=== PATIENT | female | born 1980 | race Caucasian/White ===

== ENCOUNTER 2016-08-30 01:16 | Emergency (ER) | payer OTHER ==
[~2016-08-30] VITALS: Ht 172.7 cm; Wt 90.7 kg
[~2016-08-30 01:16] MED LIST: AZO URINARY P97.5 MG PO; BACTRIM DS TAB1 EACH PO; FLOMAX0.4 MG PO; HYDROCODON-ACE1 EAC7 PO; OXYCODONE HCL 55 MG PO; PROBIOTIC1 EAC1 PO
[2016-08-30] MEDS ORDERED: IBUPROFEN 600600 M1 PO (03:07)
[2016-08-30] MEDS ORDERED: FLEXERIL PO (03:07)
[2016-08-30] MEDS ORDERED: NORCO 5-325 TA1 EACH PO (03:07)
== END 2016-08-30 03:47 | disposition home or self-care (01) ==
LOC: ER 01:16
DX: S13.4XXA Sprain of ligaments of cervical spine, initial encounter (principal); S29.012A Strain of muscle and tendon of back wall of thorax, initial encounter; F31.9 Bipolar disorder, unspecified; Z87.442 Personal history of urinary calculi; F43.10 Post-traumatic stress disorder, unspecified; V89.0XXA Person injured in unspecified motor-vehicle accident, nontraffic, initial encounter; Y93.89 Activity, other specified; Y92.89 Other specified places as the place of occurrence of the external cause; Y99.8 Other external cause status

== ENCOUNTER 2017-05-03 20:29 | Emergency (ER) | payer OTHER ==
[~2017-05-03] VITALS: Ht 170.2 cm; Wt 90.7 kg
[~2017-05-03 20:29] MED LIST changes: +FLEXERIL PO; +IBUPROFEN 600600 M1 PO; +MEDROLDOSEPACK PO; +NORCO 5-325 TA1 EACH PO; +ROBAXIN 750 MG750 M1 PO
[2017-05-03 20:41] VITALS: BP 131/81
[2017-05-03] MEDS ORDERED: PREDNISONE 20 M20 MG PO (21:16)
[2017-05-03] MEDS ORDERED: AFRIN15 ML NASAL (21:16)
== END 2017-05-03 21:40 | disposition home or self-care (01) ==
LOC: ER 20:29
DX: R09.81 Nasal congestion (principal); F31.9 Bipolar disorder, unspecified; F17.210 Nicotine dependence, cigarettes, uncomplicated; F43.10 Post-traumatic stress disorder, unspecified; Z87.442 Personal history of urinary calculi

== ENCOUNTER 2017-07-18 01:23 | Emergency (ER) | payer OTHER ==
[~2017-07-18] VITALS: Ht 170.2 cm; Wt 95.3 kg
[~2017-07-18 01:23] MED LIST changes: +AFRIN15 ML NASAL; +PREDNISONE 20 M20 MG PO
[2017-07-18 01:44] LABS: URINE BLOOD TRACE (Negative); URINE CLARITY CLEAR; URINE COLOR YELLOW; URINE GLUCOSE-RANDOM* NEGATIVE (Negative); URINE KETONES TRACE (Negative); URINE LEUKOCYTES-REFLEX NEGATIVE (Negative); URINE NITRITE-REFLEX NEGATIVE (Negative); URINE PROTEIN (DIPSTICK) NEGATIVE (Negative); URINE SPECIFIC GRAVITY 1.025 (1.005-1.035); URINE UROBILINOGEN 0.2 E.U./dl (0.2-1.0)
[2017-07-18 01:49] LABS: ABSOLUTE NEUTROPHILS 7.9 thou/uL (1.4-8.2); BASOPHILS 0.3 % (0.0-2.0); EOSINOPHILS 0.2 % (0.0-3.0); HEMATOCRIT 44.2 % (37.0-47.0); HEMOGLOBIN 15.1 gm/dL (12.0-15.0); LYMPHOCYTES 10.9 % (24.0-44.0); MCHC 34.1 g/dL (28.0-37.0); MCV 90.9 fL (80.0-100.0); MONOCYTES 3.1 % (1.0-8.0); PLATELET COUNT 268 thou/uL (150-400); POLYS 85.5 % (36.0-66.0); RBC 4.86 mil/uL (4.20-5.00); RDW 13.3 % (10.5-14.5); WBC 9.3 thou/uL (4.0-11.0)
[2017-07-18 01:55] LABS: ICTOTEST (BILI CONFIRMATORY) Negative (Negative); URINE BILIRUBIN NEGATIVE (Negative)
[2017-07-18 01:56] LABS: CALCIUM 8.4 mg/dL (8.5-10.1); CREATININE 0.9 mg/dL (0.6-1.0); POTASSIUM 3.5 mmol/L (3.5-5.1)
[2017-07-18 02:02] LABS: ALBUMIN 3.7 g/dL (3.4-5.0); TOTAL BILIRUBIN 1.1 mg/dL (<0.1-1.0); TOTAL PROTEIN 7.4 g/dL (6.4-8.2)
[2017-07-18] MEDS ORDERED: BENTYL 20 MG TA20 M1 PO (02:17)
[2017-07-18] MEDS ORDERED: LOPERAMIDE 2 MG2 M1 PO (02:17)
[2017-07-18] MEDS ORDERED: ZOFRAN4 MG PO (02:17)
[2017-07-18 02:28] VITALS: BP 130/75
== END 2017-07-18 02:29 | disposition home or self-care (01) ==
LOC: ER 01:23
PROVIDERS: Emergency Medicine
DX: K52.9 Noninfective gastroenteritis and colitis, unspecified (principal); F31.9 Bipolar disorder, unspecified; F17.210 Nicotine dependence, cigarettes, uncomplicated; F10.99 Alcohol use, unspecified with unspecified alcohol-induced disorder; Z88.8 Allergy status to other drugs, medicaments and biological substances; Z86.14 Personal history of Methicillin resistant Staphylococcus aureus infection; Z86.2 Personal history of diseases of the blood and blood-forming organs and certain disorders involving the immune mechanism; Z87.442 Personal history of urinary calculi

== ENCOUNTER 2018-05-11 04:11 | Emergency (ER) | payer OTHER ==
[~2018-05-11] VITALS: Ht 172.7 cm; Wt 90.7 kg
[~2018-05-11 04:11] MED LIST changes: +BENTYL 20 MG TA20 M1 PO; +LOPERAMIDE 2 MG2 M1 PO; +ZOFRAN4 MG PO
[2018-05-11 04:23] VITALS: BP 147/83
[2018-05-11] MEDS ORDERED: MEDROLDOSEPACK PO (04:28)
[2018-05-11] MEDS ORDERED: HYDROCORTISONE3011 TOP (04:28)
== END 2018-05-11 04:41 | disposition home or self-care (01) ==
LOC: ER 04:11
DX: L51.8 Other erythema multiforme (principal); F17.210 Nicotine dependence, cigarettes, uncomplicated; F31.9 Bipolar disorder, unspecified; Z88.8 Allergy status to other drugs, medicaments and biological substances; Z86.2 Personal history of diseases of the blood and blood-forming organs and certain disorders involving the immune mechanism; Z87.442 Personal history of urinary calculi

== ENCOUNTER 2018-05-15 14:05 | Emergency (ER) | payer OTHER ==
[~2018-05-15] VITALS: Ht 172.7 cm; Wt 90.7 kg
[~2018-05-15 14:05] MED LIST changes: +HYDROCORTISONE3011 TOP
[2018-05-15] MEDS ORDERED: TRAMADOL 50 MG50 MG PO (15:03)
[2018-05-15] MEDS ORDERED: NAPROSYN500 MG PO (15:03)
[2018-05-15 15:40] VITALS: BP 134/84
== END 2018-05-15 15:40 | disposition home or self-care (01) ==
LOC: ER 14:05
DX: S82.891A Other fracture of right lower leg, initial encounter for closed fracture (principal); D64.9 Anemia, unspecified; Z86.14 Personal history of Methicillin resistant Staphylococcus aureus infection; F31.9 Bipolar disorder, unspecified; F17.210 Nicotine dependence, cigarettes, uncomplicated; Z88.8 Allergy status to other drugs, medicaments and biological substances; W10.9XXA Fall (on) (from) unspecified stairs and steps, initial encounter; Y93.89 Activity, other specified; Y92.89 Other specified places as the place of occurrence of the external cause; Y99.8 Other external cause status

== ENCOUNTER 2018-07-23 10:04 | Emergency (ER) | payer OTHER ==
[~2018-07-23] VITALS: Ht 170.2 cm; Wt 99.8 kg
[~2018-07-23 10:04] MED LIST changes: +NAPROSYN500 MG PO; +TRAMADOL 50 MG50 MG PO
[2018-07-23] MEDS ORDERED: ULTRAM 50MG TAB50 MG PO (10:33)
[2018-07-23] MEDS ORDERED: NAPROSYN500 MG PO (10:33)
[2018-07-23 11:48] VITALS: BP 130/78
== END 2018-07-23 11:34 | disposition home or self-care (01) ==
LOC: ER 10:04
DX: K02.9 Dental caries, unspecified (principal); K01.1 Impacted teeth; B35.4 Tinea corporis; F31.9 Bipolar disorder, unspecified; F17.210 Nicotine dependence, cigarettes, uncomplicated; Z88.8 Allergy status to other drugs, medicaments and biological substances; Z86.14 Personal history of Methicillin resistant Staphylococcus aureus infection; Z87.442 Personal history of urinary calculi; Z86.2 Personal history of diseases of the blood and blood-forming organs and certain disorders involving the immune mechanism